=== PATIENT | male | born 1945 | race Caucasian/White ===

== ENCOUNTER → 2017-01-22 | Outpatient (CLI) | payer MEDICARE ==
[~2017-01-22] MED LIST: PLTR10OP OS
[2017-01-22 11:30] VITALS: BP 131/87
--- NOTE | 2017-01-22 11:30 | Urgent Care T Sheet Gen (E) ---
Intake General Temperature (Fahrenheit): 98.0 Pulse: 68 Blood Pressure Systolic: 131 Blood Pressure Diastolic: 87 Respirations: 16 SPO2: 98 Description of Symptoms Patient presents with a red, itchy, burning L eye. Started 3 days ago. Notes tearing and some purulent drainage. No mattering in the AM. No meds. Denies any cough or congestion. No allergies this time of year. Respiratory Constitutional Symptoms: No syptoms reported EENTM: Eye pain Eye tearing Respiratory: No symptoms reported Cardiovascular: No symptoms reported Gastrointestinal/Abdominal: No symptoms reported All Other Systems Reviewed Remaining Systems: All other systems reviewed with negative findings Physical Exam Physical Exam General Appearance: WD/WN No apparent distress Eyes, Ears, Nose, Throat Ex: PERRL/EOMI (L conjunctiva is red and surrounding tissue is swollen) TMs normal Pharynx normal Neck Exam: SuppleNo Lymphadenopathy Respiratory Exam: Lungs clear Normal breath sounds Cardiovascular Exam: Regular rate, rhythm Departure Urgent Care Impression Impression: Primary Impression: Left conjunctivitis Qualified Code: H10.32 - Unspecified acute conjunctivitis, left eye Departure Disposition: HOME OR SELF-CARE Condition: Stable Referrals: FRED MCGUIRE MD (PCP) Additional Instructions: I have started the patient on Polytrim for treatment. Warm compress to the eye. Return as needed Patient understands DC instructions. All questions were answered. Scripts Polymyxin/Trimethoprim (Polytrim Ophthalmic Solution)10 Ml Soln1 Drop OS QID #1 BTL 1 drop in L eye QID x 7 days Prov:STELLA SALAS 01/22/17 End of report . STELLA SALAS Jan 22, 2017 11:30
== END ==
LOC: MHUC 11:12
PROVIDERS: ATTEND Physician Assistant
DX: H10.32 Unspecified acute conjunctivitis, left eye (principal)
CPT/HCPCS: 99213

== ENCOUNTER → 2017-03-22 | Outpatient (CLI) | payer MEDICARE ==
[~2017-03-22] MED LIST changes: +CYCL10TA45 PO; +DICL100G13 TOP
[2017-03-22 09:52] VITALS: BP 131/86
--- NOTE | 2017-03-22 09:52 | Urgent Care T Sheet Gen (E) ---
Intake General Temperature (Fahrenheit): 98.1 Pulse: 73 Blood Pressure Systolic: 131 Blood Pressure Diastolic: 86 Respirations: 18 SPO2: 98 Description of Symptoms Patient presents with muscle spasms to the L lower back. Started on . Patient just had eye surgery which required him to position his head a certain way for extended periods of time. believes the position has caused his back to spasm. No history. No radiating pain or LE numbness or weakness. Been taking Tylenol and using a heat pad without much relief. History of Present Illness Home Meds Active Scripts Cyclobenzaprine HCl (Flexeril)10 Mg [id number] Mg PO TID PRN MUSCLE SPASMS #30 TAB Ref 0 Prov:STELLA SALAS 03/22/17 Diclofenac Sodium (Voltaren 1% Gel)100 Gm Gel1 Gm TOP QID PRN PAIN #1 TUBE Apply topically to affected area QID prn pain. Prov:STELLA SALAS 03/22/17 Polymyxin/Trimethoprim (Polytrim Ophthalmic Solution)10 Ml Soln1 Drop OS QID #1 BTL 1 drop in L eye QID x 7 days Prov:STELLA SALAS 01/22/17 Respiratory Constitutional Symptoms: No syptoms reported EENTM: No symptoms reported Respiratory: No symptoms reported Cardiovascular: No symptoms reported Gastrointestinal/Abdominal: No symptoms reported Musculoskeletal: Muscle pain Muscle stiffness Neurological: No Numbness, No Weakness All Other Systems Reviewed Remaining Systems: All other systems reviewed with negative findings Physical Exam Physical Exam General Appearance: WD/WN Mild distress (patient is in obvious pain. doesn't want to sit down which aggravates his back.) Back Exam: Muscle spasm (noted along the L lower back. paraspinals are not spasmed and not tender. no pain along the actual spine.) Neurologic/Psychiatric Exam: No motor deficits No sensory deficits Abnormal gait (antalgic gait) Departure Urgent Care Impression Impression: Primary Impression: Muscle spasm of back Departure Disposition: 01 HOME OR SELF-CARE Condition: Stable Referrals: FRED MCGUIRE MD (PCP) Additional Instructions: I have started the patient on Flexeril for spasm. Advised on possible lethargy side effect. I have also prescribed Voltaren gel which he may use topically for additional relief. Heating pad as needed. Tylenol as needed for pain. Return if no better or present to ER if LE weakness or numbness develops Patient understands DC instructions. All questions were answered. Scripts Cyclobenzaprine HCl (Flexeril)10 Mg [id number] Mg PO TID PRN MUSCLE SPASMS #30 TAB Ref 0 Prov:STELLA SALAS 03/22/17 Diclofenac Sodium (Voltaren 1% Gel)100 Gm Gel1 Gm TOP QID PRN PAIN #1 TUBE Apply topically to affected area QID prn pain. Prov:STELLA SALAS 03/22/17 End of report . STELLA SALAS March 22, 2017 09:41
== END ==
LOC: MHUC 09:23
PROVIDERS: ATTEND Physician Assistant
DX: M62.830 Muscle spasm of back (principal)
CPT/HCPCS: 99213